=== PATIENT | male | born 1945 | race Caucasian/White ===

== ENCOUNTER 2019-07-04 01:46 | Emergency (ER) | payer MEDICARE ==
[~2019-07-04] VITALS: Ht 182.9 cm; Wt 86.2 kg
[2019-07-04 02:11] VITALS: BP 152/90
[2019-07-04] MEDS ORDERED: CEPHALEXIN MONOHYDRATE 500 MG CAPSULE PO ONE ×2 (02:49→03:00)
== END 2019-07-04 03:16 | disposition home or self-care (01) ==
LOC: EDUNIT# 01:46 → ER 01:46
DX: L03.311 Cellulitis of abdominal wall (principal); I10 Essential (primary) hypertension; Z88.8 Allergy status to other drugs, medicaments and biological substances; Z88.1 Allergy status to other antibiotic agents